=== PATIENT | male | born 1940 | race Caucasian/White ===

== ENCOUNTER → 2016-10-16 | Outpatient (CLI) | payer OTHER, BC ==
[~2016-10-16] MED LIST: ALDACTONE25 MG PO; HYDROCHLOROTHIA25 M2 PO; KEFLEX500 MG PO; PREVACID30 M2 PO; VERAPAMIL ER240 MG PO; ZOCOR20 MG PO
== END ==
LOC: RAD 09:31
DX: K42.9 Umbilical hernia without obstruction or gangrene (principal); R13.10 Dysphagia, unspecified; R10.30 Lower abdominal pain, unspecified

== ENCOUNTER → 2017-11-13 | Outpatient (CLI) | payer OTHER | LOC: RAD 07:15 | DX: M81.0 Age-related osteoporosis without current pathological fracture (principal); M85.80 Other specified disorders of bone density and structure, unspecified site ==